=== PATIENT | female | born 1995 | race Caucasian/White ===

== ENCOUNTER 2022-09-12 11:15 | Day surgery (SDC) | payer OTHER ==
[~2022-09-12 11:15] MED LIST: Lactated Ringers 1,000 ML IV SCH; Lidocaine 1%/Sod Bicarbonate in NS 8.4% 1 ML Syringe IDERM PRN; Sodium Chloride 0.9% 10 ML Syringe FLUSH PRN; Sodium Chloride 0.9% 10 ML Syringe FLUSH SCH
[2022-09-12] MEDS ORDERED: fentaNYL 100 MCG/2 ML SDV ONE (13:08)
[2022-09-12] MEDS ORDERED: Lidocaine 1% 4 ML ONE (13:08)
[2022-09-12] MEDS ORDERED: Propofol 200 MG/20 ML SDV ONE ×2 (13:08→13:42)
[2022-09-12] MEDS ORDERED: ePHEDrine 50 MG/ML SDV ONE (13:59)
== END 2022-09-12 15:15 | disposition home or self-care (01) ==
LOC: JD.SDS 11:15
PROVIDERS: ATTEND Surgery
DX: K21.00 Gastro-esophageal reflux disease with esophagitis, without bleeding (principal); K29.50 Unspecified chronic gastritis without bleeding; K62.5 Hemorrhage of anus and rectum; G43.909 Migraine, unspecified, not intractable, without status migrainosus; Z79.899 Other long term (current) drug therapy; Z98.890 Other specified postprocedural states
CPT/HCPCS: 43239; 45378; J2704; J3010; J7120; 00813; J3490